=== PATIENT | male | born 1965 | race African-American/Black ===

== ENCOUNTER 2022-05-10 19:12 | Emergency (ER) | payer SELFPAY ==
[~2022-05-10] VITALS: Ht 175.3 cm; Wt 73.0 kg
[2022-05-10 19:15] VITALS: BP 128/82
== END 2022-05-10 19:55 | disposition left against medical advice (07) ==
LOC: ER 19:12
DX: Z53.21 Procedure and treatment not carried out due to patient leaving prior to being seen by health care provider (principal)